=== PATIENT | male | born 1925 | race Caucasian/White ===

== ENCOUNTER 2016-04-08 10:36 | Observation (INO) | payer MEDICARE, OTHER ==
[2016-04-08 11:15] LABS: HEMATOCRIT 31.3 % (37.9-51.0); HEMOGLOBIN 10.9 g/dL (13.5-17.0); HGB HCT DIFFERENCE 1.4; MEAN CORPUSCULAR HEMOGLOBIN 33.5 pg (27.0-33.4); MEAN CORPUSCULAR HGB CONC 34.6 g/dL (32.0-36.0); MEAN CORPUSCULAR VOLUME 97 fl (80-97); RED BLOOD COUNT 3.24 10^6/uL (4.35-5.55); RED CELL DISTRIBUTION WIDTH 13.5 % (11.5-14.0); WHITE BLOOD COUNT 15.1 10^3/uL (4.0-10.5)
[2016-04-08 11:26] LABS: ALANINE AMINOTRANSFERASE 14 U/L (21-72); ALBUMIN 3.3 g/dL (3.5-5.0); ALKALINE PHOSPHATASE 68 U/L (38-126); ANION GAP 12 (5-19); ASPARTATE AMINO TRANSFERASE 33 U/L (17-59); BILIRUBIN,TOTAL 0.8 mg/dL (0.2-1.3); BLOOD UREA NITROGEN 23 mg/dL (7-20); CALCIUM 9.4 mg/dL (8.4-10.2); CARBON DIOXIDE 21 mmol/L (22-30); CHLORIDE 104 mmol/L (98-107); CREATINE KINASE 30 U/L (55-170); CREATININE RESULT 0.91 mg/dL (0.52-1.25); GLUCOSE 104 mg/dL (75-110); POTASSIUM 3.5 mmol/L (3.6-5.0); SODIUM 137.3 mmol/L (137-145); TOTAL PROTEIN 7.5 g/dL (6.3-8.2)
[2016-04-08 11:38] LABS: BASOPHILS % (MANUAL) 0 % (0-2); EOSINOPHILS % (MANUAL) 0 % (0-6); LYMPHOCYTES % (MANUAL) 3 % (13-45); TOTAL CELLS COUNTED 100
[2016-04-08 11:39] LABS: CREATINE KINASE MB 0.96 ng/mL (<4.55); TROPONIN I < 0.012 ng/mL
[2016-04-08 11:40] LABS: RBC MORPHOLOGY COMMENT NORMO-CYTIC/CHROMIC; TOXIC GRANULATION SLIGHT; TOXIC VACUOLATION PRESENT
[2016-04-08 11:57] LABS: APPEARANCE,URINE CLOUDY; BILIRUBIN,URINE NEGATIVE (NEGATIVE); GLUCOSE, URINE NEGATIVE (NEGATIVE); KETONES,URINE NEGATIVE (NEGATIVE); LEUKOCYTE ESTERASE,URINE MODERATE (NEGATIVE); NITRITE,URINE NEGATIVE (NEGATIVE); PROTEIN,URINE 30 mg/dL (NEGATIVE); TRIPLE PHOSPHATE CRYSTAL,URINE MODERATE /HPF; URINE SPECIFIC GRAVITY 1.013; UROBILINOGEN,URINE NEGATIVE mg/dL (<2.0)
--- NOTE | 2016-04-08 13:03 | ER Document Report ---
[id number] OF BREATH Mode of Arrival: Medic Information source: Patient, Dr. Office Notes: 89-year-old male sent in by his primary care physician for fast heart rate. Patient's physician Dr. Simons contacted me noted that the patient's heart rate was in the 170s SVT, patient himself notes his heart was racing and that he was short of breath with the jaw pain TRAVEL OUTSIDE OF THE [place] IN LAST 30 DAYS: No - HPI Onset: Just prior to arrival Onset/Duration: Sudden Quality of pain: Achy Severity: Mild Pain Level: 1 Associated symptoms: Chest pain Exacerbated by: Denies Relieved by: Denies Similar symptoms previously: No Recently seen / treated by doctor: Yes - Related Data Allergies/Adverse Reactions: acetaminophen [From Percocet] Allergy (Verified 04/08/16 11:20) oxycodone [From Percocet] Allergy (Verified 04/08/16 11:20) Past Medical History - Social History Smoking Status: Never Smoker Cigarette use (# per day): No Chew tobacco use (# tins/day): No Smoking Education Provided: No Family History: Reviewed & Not Pertinent - Past Medical History Cardiac Medical History: Denies: Hx Coronary Artery Disease, Hx Heart Attack, Hx Hypertension Pulmonary Medical History: Reports: Hx Bronchitis Denies: Hx Asthma, Hx COPD, Hx Pneumonia Neurological Medical History: Denies: Hx Cerebrovascular Accident, Hx Seizures Musculoskeltal Medical History: Reports Hx Arthritis Past Surgical History: Reports: Hx Abdominal Surgery - hernia repair, Hx Cholecystectomy, Hx Kidney (Renal Surgery) - Urostomy. Denies: Hx Pacemaker - Immunizations Hx Diphtheria, Pertussis, Tetanus Vaccination: No - Unsure Hx Pneumococcal Vaccination: 11/22/10 Review of Systems - Review of Systems Notes: REVIEW OF SYSTEMS: CONSTITUTIONAL : Denies fever, chills, or sweats. Denies recent illness. EENT: Denies eye, ear, throat, or mouth pain or symptoms. Denies nasal or sinus congestion or discharge. Denies throat, tongue, or mouth swelling or difficulty swallowing. CARDIOVASCULAR: admits ot racing heart RESPIRATORY: Denies cough, cold, or chest congestion. Denies shortness of breath, difficulty breathing, or wheezing. GASTROINTESTINAL: Denies abdominal pain or distention. Denies nausea, vomiting , or diarrhea. Denies blood in vomitus, stools, or per rectum. Denies black, tarry stools. Denies constipation. GENITOURINARY: Denies difficulty urinating, painful urination, burning, frequency, blood in urine, or discharge. MUSCULOSKELETAL: Denies back or neck pain or stiffness. Denies joint pain or swelling. SKIN: Denies rash, lesions or sores. HEMATOLOGIC : Denies easy bruising or bleeding. LYMPHATIC: Denies swollen, enlarged glands. NEUROLOGICAL: Denies confusion or altered mental status. Denies passing out or loss of consciousness. Denies dizziness or lightheadedness. Denies headache. Denies weakness or paralysis or loss of use of either side. Denies problems with gait or speech. Denies sensory loss, numbness, or tingling. Denies seizures. PSYCHIATRIC: Denies anxiety or stress. Denies depression, suicidal ideation, or homicidal ideation. ALL OTHER SYSTEMS REVIEWED AND NEGATIVE. Dictation was performed using [employer] voice recognition software PHYSICAL EXAMINATION: GENERAL: Well-appearing, well-nourished and in no acute distress. HEAD: Atraumatic, normocephalic. EYES: Pupils equal round and reactive to light, extraocular movements intact, sclera anicteric, conjunctiva are normal. ENT: Nares patent, oropharynx clear without exudates. Moist mucous membranes. NECK: Normal range of motion, supple without lymphadenopathy LUNGS: Breath sounds clear to auscultation bilaterally and equal. No wheezes rales or rhonchi. HEART: irregular rate and rythm ABDOMEN: Soft, nontender, nondistended abdomen. No guarding, no rebound. No masses appreciated. Musculoskeletal: Normal range of motion, no pitting or edema. No cyanosis. NEUROLOGICAL: Cranial nerves grossly intact. Normal speech, normal gait. Normal sensory, motor exams PSYCH: Normal mood, normal affect. SKIN: Warm, Dry, normal turgor, no rashes or lesions noted. Physical Exam - Vital signs Vitals: Pulse Ox 98 04/08/16 10:45 Course - Re-evaluation Re-evalutation: 04/08/16 13:03 Patient is adamant that he go home, I think this is a terrible idea, CT is pending however the patient does have irregular heart rate concerning for new onset A. fib 04/08/16 16:07 CT was negative, patient's heart rate continues to go anywhere between 80s to 120s intermittently, I believe further evaluation is appropriate and I will admit the patient for concerns of new onset A. fib - Vital Signs Vital signs: Temp Pulse Resp BP Pulse Ox 15 144/98 H 96 04/08/16 15:06 04/08/16 15:06 04/08/16 15:06 - Laboratory Result Diagrams: 04/08/16 11:05 04/08/16 11:05 Laboratory results interpreted by me: 04/08/16 04/08/16 04/08/16 11:05 11:05 11:34 WBC 15.1 H RBC 3.24 L Hgb 10.9 L Hct 31.3 L MCH 33.5 H Seg Neuts % (Manual) 92 H Lymphocytes % (Manual) 3 L Abs Neuts (Manual) 13.9 H Potassium 3.5 L Carbon Dioxide 21 L BUN 23 H ALT 14 L Creatine Kinase 30 L Albumin 3.3 L Urine Protein 30 H Ur Leukocyte Esterase MODERATE H - Diagnostic Test Radiology reviewed: Image reviewed, Reports reviewed - EKG Interpretation by Me EKG shows normal: Sinus rhythm, Saline, Intervals, QRS Complexes Rate: Tachycardia Discharge - Discharge Clinical Impression: Tachycardia Afib Qualifiers: Atrial fibrillation type: paroxysmal Qualified Code(s): I48.0 - Paroxysmal atrial fibrillation Condition: Stable Disposition: ADMITTED INPATIENT Admitting Provider: Hospitalist Unit Admitted: [facility]
[2016-04-08] MEDS ORDERED: NORMAL SALINE 1000 ML 1,000 ML IV PRN (17:19)
--- NOTE | 2016-04-08 17:28 | PDOC H&P ---
History of Present Illness Admission Date/PCP: 04/08/16 16:16 ISMAEL HERNANDEZ MD History of Present Illness: TORRIE DURAN is a 89 year old male sent in by his primary care physician for fast heart rate. Patient's physician Dr. 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, bones, lungs Cardiac Medical History: Denies: Coronary Artery Disease, Myocardial Infarction, Hypertension Pulmonary Medical History: Reports: Bronchitis Denies: Asthma, Chronic Obstructive Pulmonary Disease (COPD), Pneumonia Neurological Medical History: Denies: Seizures Malignancy Medical History: Reports: Other - stage 4 ca with mets to liver , lungs , bones ca bladder, prostate Musculoskeltal Medical History: Reports: Arthritis Hematology: Denies: Anemia Past Surgical History Past Surgical History: Reports: Cholecystectomy, Other - cystectomy ileal conduit parastomal hernia Denies: Pacemaker Social History Smoking Status: Never Smoker Frequency of Alcohol Use: None Hx Recreational Drug Use: No Family History Parental Family History Reviewed: Yes - mother [place] Children Family History Reviewed: Yes Sibling(s) Family History Reviewed.: Yes - sister [place] ; brother cancer Medication/Allergy Home Medications: Hydrochlorothiazide [Hydrodiuril 12.5 mg Capsule] 12.5 mg PO DAILY 04/08/16 Megestrol Acetate 40 mg PO BID 04/08/16 Prednisone [Deltasone 10 mg Tablet] 10 mg PO BID 04/08/16 Allergies/Adverse Reactions: acetaminophen [From Percocet] Allergy (Verified 04/08/16 11:20) oxycodone [From Percocet] Allergy (Verified 04/08/16 11:20) Review of Systems Constitutional: PRESENT: fatigue. ABSENT: night sweats, weakness, weight gain, weight loss Eyes: ABSENT: visual disturbances Ears: ABSENT: hearing changes Cardiovascular: PRESENT: dyspnea on exertion, orthropnea, palpitations Respiratory: PRESENT: dyspnea. ABSENT: cough, hemoptysis Gastrointestinal: ABSENT: abdominal pain, constipation, diarrhea, hematemesis, hematochezia, nausea, vomiting Musculoskeletal: ABSENT: joint swelling Neurological: ABSENT: abnormal gait, abnormal speech, confusion, dizziness, focal weakness, syncope Physical Exam Vital Signs: Temp Pulse Resp BP Pulse Ox 19 149/100 H 97 04/08/16 16:01 04/08/16 16:01 04/08/16 16:01 General appearance: PRESENT: no acute distress, well-developed, well-nourished Head exam: PRESENT: atraumatic, normocephalic Eye exam: PRESENT: conjunctiva pink, EOMI, PERRLA. ABSENT: scleral icterus Ear exam: PRESENT: normal external ear exam Mouth exam: PRESENT: moist, tongue midline Neck exam: ABSENT: carotid bruit, JVD, lymphadenopathy, thyromegaly Respiratory exam: PRESENT: clear to auscultation renetta. ABSENT: rales, rhonchi, wheezes Cardiovascular exam: PRESENT: RRR, systolic murmur. ABSENT: rubs Pulses: PRESENT: normal dorsalis pedis pul Vascular exam: PRESENT: normal capillary refill GI/Abdominal exam: PRESENT: normal bowel sounds, soft. ABSENT: distended, guarding, mass, organolmegaly, rebound, tenderness Rectal exam: PRESENT: deferred Extremities exam: PRESENT: full ROM. ABSENT: calf tenderness, clubbing, pedal edema Neurological exam: PRESENT: alert, awake, oriented to person, oriented to place , oriented to time, oriented to situation, CN II-XII grossly intact. ABSENT: motor sensory deficit Psychiatric exam: PRESENT: appropriate affect, normal mood. ABSENT: homicidal ideation, suicidal ideation Skin exam: PRESENT: dry, intact, warm. ABSENT: cyanosis, rash Results Laboratory Results: Labs- All tests 24 hr 04/08/16 04/08/16 04/08/16 11:05 11:05 11:05 WBC 15.1 H RBC 3.24 L Hgb 10.9 L Hct 31.3 L MCV 97 MCH 33.5 H MCHC 34.6 RDW 13.5 Plt Count 356 Total Counted 100 Seg Neutrophils % Not Reportable Seg Neuts % (Manual) 92 H Lymphocytes % Not Reportable Lymphocytes % (Manual) 3 L Monocytes % Not Reportable Monocytes % (Manual) 5 Eosinophils % Not Reportable Eosinophils % (Manual) 0 Basophils % Not Reportable Basophils % (Manual) 0 Absolute Neutrophils Not Reportable Abs Neuts (Manual) 13.9 H Absolute Lymphocytes Not Reportable Abs Lymphs (Manual) 0.5 Absolute Monocytes Not Reportable Abs Monocytes (Manual) 0.8 Absolute Eosinophils Not Reportable Absolute Eos (Manual) 0.0 Absolute Basophils Not Reportable Abs Basophils (Manual) 0.0 Toxic Granulation SLIGHT Toxic Vacuolation PRESENT Platelet Comment ADEQUATE RBC Morph Comment NORMO-CYTIC/CHROMIC Sodium 137.3 Potassium 3.5 L Chloride 104 Carbon Dioxide 21 L Anion Gap 12 BUN 23 H Creatinine 0.91 Est GFR ( Amer) > 60 Est GFR (Non-Af Amer) > 60 Glucose 104 Calcium 9.4 Magnesium Total Bilirubin 0.8 Direct Bilirubin 0.0 AST 33 ALT 14 L Alkaline Phosphatase 68 Creatine Kinase 30 L CK-MB (CK-2) 0.96 Troponin I < 0.012 Total Protein 7.5 Albumin 3.3 L TSH Urine Color Urine Appearance Urine pH Ur Specific [place] Urine Protein Urine Glucose (UA) Urine Ketones Urine Blood Urine Nitrite Urine Bilirubin Urine Urobilinogen Ur Leukocyte Esterase Urine WBC (Auto) Urine RBC (Auto) Urine Bacteria (Auto) Squamous Epi Cells Auto U Non-Squamous Epis Auto Triple Phos Cryst (Auto) Urine Mucus (Auto) Urine Ascorbic Acid 04/08/16 04/08/16 04/08/16 11:05 11:05 11:34 WBC RBC Hgb Hct MCV MCH MCHC RDW Plt Count Total Counted Seg Neutrophils % Seg Neuts % (Manual) Lymphocytes % Lymphocytes % (Manual) Monocytes % Monocytes % (Manual) Eosinophils % Eosinophils % (Manual) Basophils % Basophils % (Manual) Absolute Neutrophils Abs Neuts (Manual) Absolute Lymphocytes Abs Lymphs (Manual) Absolute Monocytes Abs Monocytes (Manual) Absolute Eosinophils Absolute Eos (Manual) Absolute Basophils Abs Basophils (Manual) Toxic Granulation Toxic Vacuolation Platelet Comment RBC Morph Comment Sodium Potassium Chloride Carbon Dioxide Anion Gap BUN Creatinine Est GFR ( Amer) Est GFR (Non-Af Amer) Glucose Calcium Magnesium 2.0 Total Bilirubin Direct Bilirubin AST ALT Alkaline Phosphatase Creatine Kinase CK-MB (CK-2) Troponin I Total Protein Albumin TSH 1.24 Urine Color YELLOW Urine Appearance CLOUDY Urine pH 8.0 Ur Specific [place] 1.013 Urine Protein 30 H Urine Glucose (UA) NEGATIVE Urine Ketones NEGATIVE Urine Blood NEGATIVE Urine Nitrite NEGATIVE Urine Bilirubin NEGATIVE Urine Urobilinogen NEGATIVE Ur Leukocyte Esterase MODERATE H Urine WBC (Auto) 12 Urine RBC (Auto) 1 Urine Bacteria (Auto) 3+ Squamous Epi Cells Auto <1 U Non-Squamous Epis Auto 1 Triple Phos Cryst (Auto) MODERATE Urine Mucus (Auto) RARE Urine Ascorbic Acid NEGATIVE Impressions: Chest X-Ray 04/08/16 10:40 IMPRESSION: No acute changes. Other findings as noted above Chest/Abdomen CTA 04/08/16 12:54 IMPRESSION: NO PULMONARY EMBOLI. Assessment & Plan - Diagnosis (1) Tachycardia Is this a current diagnosis for this admission?: YesPlan: will monitor patient most likely has PAF now in NSR with multiple pac's will initiate cardizem CD 120 mg and order PRN doses of cardizem IV if HR>100 cardiac wup in progress : echo cardiogram , serial troponins, EKG in am Thyroid function tests pending (2) Bacteriuria Is this a current diagnosis for this admission?: YesPlan: will obtain urine culture likely chronic colonisation (3) Metastatic cancer Is this a current diagnosis for this admission?: Yes - Time Time Spent with patient: patient admitted to telemetry for observation Time Spent: 50 to 70 Minutes - Inpatient Certification Based on my medical assessment, after consideration of the patient's comorbidities, presenting symptoms, or acuity I expect that the services needed warrant INPATIENT care.: No I certify that my determination is in accordance with my understanding of Medicare's requirements for reasonable and necessary INPATIENT services [42 CFR 412.3e].: Yes
[2016-04-08] MEDS ORDERED: DILTIAZEM HCL INJ 25 MG/5 ML VIAL IV PRN (17:45)
[2016-04-08] MEDS ORDERED: DILTIAZEM HCL 120 MG CAP.SR.24H PO SCH (18:00)
[2016-04-08] MEDS ORDERED: ENOXAPARIN SODIUM INJ 40 MG/0.4 ML DISP.SYRIN SUBCUT ONE (19:00)
[2016-04-08 19:55] LABS: THYROID STIMULATING HORMONE 1.34 uIU/mL (0.47-4.68)
--- NOTE | 2016-04-08 21:35 | EKG REPORT ---
SEVERITY:- ABNORMAL ECG - SINUS RHYTHM MULTIPLE ATRIAL PREMATURE COMPLEXES BORDERLINE LEFT AXIS DEVIATION : Confirmed by: Pedro Lopez 08-Apr-2016 21:34:42
[2016-04-09 06:53] LABS: ALANINE AMINOTRANSFERASE 18 U/L (21-72); ALBUMIN 2.7 g/dL (3.5-5.0); ALKALINE PHOSPHATASE 56 U/L (38-126); ANION GAP 9 (5-19); ASPARTATE AMINO TRANSFERASE 12 U/L (17-59); BILIRUBIN,TOTAL 0.7 mg/dL (0.2-1.3); BLOOD UREA NITROGEN 18 mg/dL (7-20); CALCIUM 8.4 mg/dL (8.4-10.2); CARBON DIOXIDE 23 mmol/L (22-30); CHLORIDE 107 mmol/L (98-107); CREATININE RESULT 0.99 mg/dL (0.52-1.25); GLUCOSE 97 mg/dL (75-110); MAGNESIUM 1.8 mg/dL (1.6-2.3); POTASSIUM 3.2 mmol/L (3.6-5.0); SODIUM 139.4 mmol/L (137-145); TOTAL PROTEIN 6.3 g/dL (6.3-8.2)
[2016-04-09] MEDS ORDERED: ENOXAPARIN SODIUM INJ 40 MG/0.4 ML DISP.SYRIN SUBCUT SCH (08:00)
[2016-04-09] MEDS ORDERED: (PENDING PHARMACY ID) (Megestrol Acetate [Megestrol Acetate] 40 MG) PO SCH (10:00)
[2016-04-09] MEDS ORDERED: ENZALUTAMIDE 160 MG PO SCH (10:00)
[2016-04-09] MEDS ORDERED: POTASSIUM CHLORIDE 10 MEQ TABLET.SA PO ONE (10:00)
[2016-04-09] MEDS ORDERED: (PENDING PHARMACY ID) (Enzalutamide [Xtandi] 160 MG) PO SCH (10:00)
[2016-04-09] MEDS ORDERED: MEGESTROL ACETATE 20 MG TABLET PO SCH (10:00)
[2016-04-09] MEDS ORDERED: PREDNISONE 10 MG TABLET PO SCH (10:00)
[2016-04-09] MEDS ORDERED: DILTIAZEM HCL 120 MG CAP.SR.24H PO ONE (14:00)
[2016-04-09 14:54] VITALS: BP 128/81
[2016-04-09] MEDS ORDERED: CEFTRIAXONE 1 GM/D5W RTU 1 GM/50 ML RTUPB IV ONE (15:00)
[2016-04-09] MEDS ORDERED: CEFPODOXIME 200 MG TABLET PO ONE (16:00)
--- NOTE | 2016-04-09 16:48 | CONSULTATION REPORT E ---
Consultation Report NAME: TORRIE DURAN : 1925 AGE: 89Y DATE: 04/09/2016 321 B TO: ALEJANDRA SINGH M.D. FROM: Requesting Physician REASON FOR CONSULTATION: PSVT which converted to sinus rhythm with multiple APCs. HISTORY OF PRESENT ILLNESS: The patient is an 89-year-old male who states that since the past 2-3 weeks he has not been feeling well with dyspnea on mild exertion, especially if he walks a flight of stairs. Hence, the patient went to see his PMD yesterday and his EKG showed that the patient was in PSVT. The patient wanted to drive to the hospital but his PMD convinced him to go the ER by EMT. In the ER, the patient was seen to be in sinus rhythm with frequent APCs. The patient states he did not feel any palpitations the last 3 weeks or so with dyspnea on exertion. But when his PMD got an EKG and pointed out that the patient's heart rate was fast, then he felt palpitations. He also had jaw pain and also shortness of breath. The patient denies any PND, orthopnea, or leg edema. There is no syncopal episode. There are no TIA or CVA symptoms. PAST MEDICAL HISTORY: Negative for diabetes mellitus, negative for hypertension, negative for coronary artery disease or MS. There is no history of thyroid disorder. The patient has no chronic kidney disease. The patient has prostate cancer and also had a prostatectomy and also had bladder cancer which the states there is mets to the bones but not to the liver or lungs. He also has a history of arthritis. The patient denies asthma, COPD, or pneumonia but the patient has mild pulmonary fibrosis by his CTA. He denies any history of TIA or CVA. There is no syncope. There is no sleep apnea. There is no pulmonary embolism. There is no DVT. PAST SURGICAL HISTORY: Positive for cholecystectomy. He also had a cystectomy and a ileal conduit and parastomal hernia. He also has had prostatectomy. SOCIAL HISTORY: Note that the patient is a DNR. His is his surrogate healthcare decision maker. The patient quit smoking a long time ago. He does not smoke anymore. FAMILY HISTORY: He states his mother of MS. Also, his sister of MS. Brother of cancer. ALLERGIES: 1. ACETAMINOPHEN. 2. OXYCODONE. MEDICATIONS: 1. Diltiazem 10 mg IV q.6 hours p.r.n. 2. He is also on diltiazem sustained release 120 mg p.o. q.12 hours. 3. He is on Lovenox 40 mg subcutaneous q. a.m. 4. Normal saline 1000 mL continuous at 75 mL per hour. 5. He is on megestrol 40 mg p.o. b.i.d. 6. He is on KCl 40 mEq p.o. times 1. 7. He is on Deltasone 10 mg p.o. b.i.d. 8. He is ceftriaxone 1 g IV piggyback times 1. REVIEW OF SYSTEMS: CONSTITUTIONAL: Denies any fever, chills, or rigors. Complains of generalized fatigue. There are no night sweats. EYES: There is no visual disturbance. There is no amaurosis fugax. EARS: The patient is hard of hearing. HEAD: No history of head injury or headaches or migraines. NOSE: No history of hay fever. No history of nosebleeds. MOUTH: No history of altered taste sensation. No ulcers in the mouth. THROAT: No odynophagia or dysphagia. SKIN: No skin rashes or petechia or ecchymosis. No psoriasis. No pruritus. No yellowish discoloration of the skin. NECK: No swelling in the neck, painful or painless. There is no lymphadenopathy. There is no goiter. Trachea is central. LUNGS: The patient denies any cough or sputum production. There is no wheezing. There is no orthopnea. There is no history of sleep apnea. There is no asthma or COPD, but the patient's CTA shows mild pulmonary fibrosis, most likely the cause of the patient having sinus rhythm with APCs versus aortic atrial mechanism. CARDIAC: Denies hypertension, coronary artery disease, MS, or anginal symptoms although the patient did have jaw pain and his heart rate was fast when he was in PSVT. The patient, in the past, has not felt palpitations although he has been having dyspnea on exertion. There is no leg edema. There is no PND or orthopnea. There is no syncope. GASTROINTESTINAL: History of diminished appetite. The patient is on megestrol for that. History of cholecystectomy. At present, no fatty food intolerance. No jaundice. No hepatitis. There is no hematemesis or melena. MUSCULOSKELETAL: The patient has a history of arthritis but there is no acute joint swelling or redness of the joints. RENAL: No history of renal disease. No history of chronic kidney disease. History of cystectomy/bladder surgery for bladder cancer. History of ileal conduit and history of parastomal hernia. History of prostatectomy present. He had radiation therapy also. No symptoms of UTI although the patient's urine shows moderate urine leukocyte esterase and 12 WBCs. The patient's urine culture is positive for gram negative rods. MUSCULOSKELETAL: History of arthritis present but no acute joints, swelling, or redness. No collagen vascular disease. CENTRAL NERVOUS SYSTEM: There is no history of TIA or CVA. No history of seizures, headaches, or migraines. PSYCHIATRIC: No history of anxiety or depression. No history of suicidal ideation. PHYSICAL EXAMINATION: GENERAL: The patient is well built and well nourished in no acute distress. VITAL SIGNS: He is afebrile with a temperature of 98.2 degrees Fahrenheit, pulse is 85 beats per minute, blood pressure 126/54, respirations are 19 per minute, 02 saturations are 94% on room air. HEENT: Head is atraumatic, normocephalic. Eyes: Pupils are equal, round, regular and reactive to light and accommodation. Extraocular movements are normal. There is no conjunctival pallor. There is no scleral icterus. Ears: Tympanic membranes are intact. External auditory canal is clear. Nose: There is no deviated nasal septum. There is no inflammation of the nasal mucous membranes. Mouth: Mucous membranes of the mouth are moist. Tongue is moist. There are no ulcers. There is no bleeding from the gums. Throat: There is no redness of the oropharynx. There are no exudates on the tonsils. SKIN: There is no petechia or ecchymosis. There are no skin lesions. There are no skin rashes. NECK: Supple. There is no JVD. Carotids are equal. There is no bruit. There is no lymphadenopathy. There is no goiter. Trachea is central. LUNGS: Show a few dry crackles of leathery in nature bilaterally in the bases. HEART: S1 and S2 are heard. There is probably mild aortic stenosis present with preserved A2. There is no S3 gallop. There is no S4 gallop. There is a systolic murmur in the apex with mild radiation to the axilla suggestive of mild mitral regurgitation. There is no rub. There are no gallops. ABDOMEN: Soft. There is no hepatosplenomegaly. Bowel sounds are well heard. There is an ileal conduit with a bag present in the lower abdomen. EXTREMITIES: Femorals are diminished. Leg pulses are diminished. There are no femoral bruits. There is no cyanosis or clubbing. There is no DVT or cellulitis. There is no calf tenderness. There is no pedal edema. CENTRAL NERVOUS SYSTEM: The patient is conscious, awake, alert, oriented x3 with no focal deficits. PSYCHIATRIC: The patient's judgment and insight are intact. His affect is normal. The patient does not appear to be agitated. DIAGNOSTICS: The patient's chest x-ray: Scattered sclerotic densities are in effect consistent with bony metastatic disease which is present on a previous CT scan. No opacities, masses, or pneumothorax. No pleural effusion. Cardial silhouette is within normal limits. Tortuous calcified thoracic aorta is identified. The patient's initial EKG done in the doctor's office only shows PSVT at a rate of 170 beats per minute. Subsequent EKG is sinus rhythm with multiple atrial premature complexes versus aortic atrial mechanism. Borderline left axis deviation. The patient's chest/abdomen CTA shows no evidence of pulmonary emboli. There is mild pulmonary fibrosis. There are no acute infiltrates. No worrisome pulmonary nodules. Minimal peripheral increase interstitial markings for a mild pulmonary fibrosis. There is no pleural effusion. There is no pneumothorax. The patient's EKG strip shows aortic atrial mechanism with 3 different *------* morphologies. The patient's sodium is 139, potassium 3.2. This has been reversed. The patient's chloride is 107, CO2 is 23. The patient's BUN is 18, creatinine is 0.99, GFR is greater than 60. His glucose is 97. His magnesium is 1.8. His calcium is 8.4. His liver function tests are normal except for a low AST of 12 and low ALT of 18. Alk phos is normal at 56. His cardiac enzymes: Troponin I is negative x3. His total protein is 6.3, albumin is 2.7. The patient's TSH is 1.34. Free T4 is 1.30. The patient's white count is 15,100; hemoglobin is 10.9; hematocrit of 31.3; platelet count of 356,000. IMPRESSION: 1. Paroxysmal supraventricular tachycardia resolved. 2. Sinus rhythm with frequent APCs versus aortic atrial mechanism. 3. Stage IV cancer with mets to the bones from prostate cancer and also bladder cancer. 4. Arthritis. 5. Note that the patient's last diagnosis was hypokalemia. Potassium has been replaced. 6. Urinary tract infection with gram negative rods in the urine. Patient being treated with antibiotics. RECOMMENDATIONS: Continue Cardizem CD at 120 mg p.o. q.12 hours and he is on Xtandi 160 mg p.o. daily. Megestrol 40 mg p.o. b.i.d. He is on Deltasone 10 mg p.o. b.i.d. He is on Vantin 200 mg 1 tablet p.o. q.12 hours. Note that the patient is anxious to go home. We will get the patient's echo in the office. We will also get a 30-day event monitor. Note, 40 minutes spent on this patient, with more than 50% of the time spent on direct patient care and also discussions of the EKG findings and the lab results with patient and the patient's . Also, coordination of care was done with the hospitalist taking care of the patient and other caregiving providers. Also, medications were reviewed and adjusted. We will sign off the case and follow the patient as an outpatient since the patient and the patient's want to followup with me. I have given them my cell number to call me. Thanking you. DICTATING PHYSICIAN: ALEJANRDA SINGH M.D. [id number] PHY#: [id number] ID: [id number] JOB#: [id number] ACCT: [id number] cc:ALEJANDRA SINGH M.D. >
--- NOTE | 2016-04-09 17:09 | PDOC DISCHARGE SUMMARY ---
General - Admit/Disc Date/PCP Admission Date/Primary Care Provider: 04/08/16 17:19 ISMAEL HERNANDEZ MD Discharge Date: 04/09/16 - Discharge Diagnosis (1) Tachycardia Is this a current diagnosis for this admission?: YesSummary: Patient was admitted after he was found to have a heart rate 150-170 irregular at his doctor's office Upon admission in the ER patient was found to have sinus tachycardia with multiple PACs He was admitted overnight for observation and cardiac monitoring He remained in sinus tachycardia with PACs and was not noted to be in atrial fibrillation Patient was treated with Cardizem po He will be discharged with Cardizem CD 120 mg every 12, and will be followed by Dr. Calixto as an outpatient An echocardiogram was performed prior to his discharge TSH and T4 were normal 04/08/16 04/09/16 04/09/16 18:47 00:46 06:30 Troponin I < 0.012 < 0.012 < 0.012 3 troponins were less than 0.012 (2) Bacteriuria Is this a current diagnosis for this admission?: YesSummary: Urine culture showed to gram-negative bacteria Identification and sensitivity are pending Noted that patient had a white blood count of 15,000 Patient was discharged on vantin 200 mg twice a day pending results Urinary tract infection may have triggered the tachycardia (3) Metastatic cancer Is this a current diagnosis for this admission?: Yes - Additional Information Resuscitation Status: Do Not Resuscitate Discharge Diet: Cardiac Discharge Activity: Activity As Tolerated Home Medications: Enzalutamide [Xtandi] 160 mg PO DAILY 04/08/16 Megestrol Acetate 40 mg PO BID 04/08/16 Prednisone [Deltasone 10 mg Tablet] 10 mg PO BID 04/08/16 Cefpodoxime Proxetil [Vantin 200 mg Tablet] 1 tab PO Q12 #20 tab 04/09/16 Diltiazem HCl [Cardizem Cd 120 mg Capsule] 1 cap.sr PO Q12 #60 cap.sr 04/09/16 History of Present Illness Patient complains of: Tachycardia at the doctor's office and shortness of breath History of Present Illness: TORRIE DURAN is a 89 year old male sent in by his primary care physician for fast heart rate. Patient's physician Dr. Hernandez contacted me noted that the patient's heart rate was in the 170s SVT , patient himself notes his heart was racing and that he was short of breath with the jaw pain Patient was evaluated in ED Upon evaluation he was found to be in NSR with multiple apc's ; He was subsequently admitted to [facility] under hospitalist's service Hospital Course Hospital Course: See above Physical Exam Vital Signs: Temp Pulse Resp BP Pulse Ox 98.4 F 93 19 128/81 H 95 04/09/16 14:53 04/09/16 14:53 04/09/16 14:53 04/09/16 14:53 04/09/16 14:53 Intake & Output 04/08/16 04/09/16 04/10/16 00:59 00:59 00:59 Intake Total 300 1192 Output Total 450 525 Balance -150 667 Weight 70.1 kg 70.4 kg General appearance: PRESENT: no acute distress, well-developed, well-nourished Head exam: PRESENT: atraumatic, normocephalic Eye exam: PRESENT: conjunctiva pink, EOMI, PERRLA. ABSENT: scleral icterus Ear exam: PRESENT: normal external ear exam Mouth exam: PRESENT: moist, tongue midline Neck exam: ABSENT: carotid bruit, JVD, lymphadenopathy, thyromegaly Respiratory exam: PRESENT: clear to auscultation renetat. ABSENT: rales, rhonchi, wheezes Cardiovascular exam: PRESENT: RRR. ABSENT: diastolic murmur, rubs, systolic murmur Pulses: PRESENT: normal dorsalis pedis pul Vascular exam: PRESENT: normal capillary refill GI/Abdominal exam: PRESENT: normal bowel sounds, soft. ABSENT: distended, guarding, mass, organolmegaly, rebound, tenderness Rectal exam: PRESENT: deferred Extremities exam: PRESENT: full ROM. ABSENT: calf tenderness, clubbing, pedal edema Neurological exam: PRESENT: alert, awake, oriented to person, oriented to place , oriented to time, oriented to situation, CN II-XII grossly intact. ABSENT: motor sensory deficit Psychiatric exam: PRESENT: appropriate affect, normal mood. ABSENT: homicidal ideation, suicidal ideation Skin exam: PRESENT: dry, intact, warm. ABSENT: cyanosis, rash Results Laboratory Results: 04/09/16 06:30 04/08/16 04/09/16 18:47 06:30 Sodium 139.4 Potassium 3.2 L Chloride 107 Carbon Dioxide 23 Anion Gap 9 BUN 18 Creatinine 0.99 Est GFR ( Amer) > 60 Est GFR (Non-Af Amer) > 60 Glucose 97 Calcium 8.4 Magnesium 1.8 Total Bilirubin 0.7 AST 12 L ALT 18 L Alkaline Phosphatase 56 Total Protein 6.3 Albumin 2.7 L TSH 1.34 Free T4 1.30 04/08/16 04/09/16 04/09/16 18:47 00:46 06:30 Troponin I < 0.012 < 0.012 < 0.012 04/08/16 11:34 Urine Appearance CLOUDY Ur Leukocyte Esterase MODERATE H Urine WBC (Auto) 12 Urine Bacteria (Auto) 3+ 04/08/16 11:34 Urine Culture - Preliminary Urostomy Bag Gram Negative Rods Gram Negative Rods#2 Impressions: Chest X-Ray 04/08/16 10:40 IMPRESSION: No acute changes. Other findings as noted above Chest/Abdomen CTA 04/08/16 12:54 IMPRESSION: NO PULMONARY EMBOLI. Plan Discharge Plan: Patient was discharged home to follow up with primary care physician and Dr. Calixto cardiology Echocardiogram was performed results were not available at time of discharge Time Spent: Less than 30 Minutes
--- NOTE | 2016-04-09 18:09 | XCELERA REPORT ---
[address] [address] Transthoracic Echocardiogram Report Name: TORRIE DURAN Age: 89 yrs Gender: Male : 1925 Patient Status: Inpatient Patient Location: [id number]\S\321\[id number]\B Study Date: 04/09/2016 02:23 PM Height: 67 in Weight: 155 lb BSA: 1.8 m2 Procedure: A two-dimensional transthoracic echocardiogram with color flow and Doppler was performed. The study was technically difficult with many images being suboptimal in quality. Reason For Study: TACHYCARDIA History: TACHYCARDIA. Ordering Physician: SAUL COX Performed By: Sena Lainez Interpretation Summary The left ventricle is normal in size. There is normal left ventricular wall thickness. LV EF is 60% Left ventricular systolic function is normal. The right ventricle is grossly normal size. The right ventricle is not well visualized secondary to technical limitations Calcified mitral apparatus causing mitral stenosis. There is severe mitral annular calcification. There is no evidence of mitral valve prolapse. There is mild mitral stenosis There is a trace amount of mitral regurgitation There is mild to moderate aortic stenosis There is a peak gradient of 46 mm of Hg. There is no LVOT obstruction. There is a mild amount of aortic regurgitation There is no tricuspid stenosis. There is a trace to mild amount of tricuspid regurgitation There is mild pulmonary hypertension by echo RVSP is 36 mm of Hg , with RA mean of 5. There is a mild amount of pulmonic regurgitation There is no pericardial effusion. MMode/2D Measurements \T\ Calculations RVDd: 3.2 cm LVIDd: 3.9 cm FS: 27.5 % Ao root diam: 3.0 cm IVSd: 1.1 cm LVIDs: 2.8 cm EDV(Teich): 65.9 ml LVPWd: 1.1 cm ESV(Teich): 30.3 ml Ao root area: 7.3 cm2 EF(Teich): 54.0 % LA dimension: 3.5 cm LVOT diam: 2.1 cm LVOT area: 3.6 cm2 Doppler Measurements \T\ Calculations MV E max krupa: MV V2 max: MV P1/2t max krupa: Ao V2 max: 152.9 cm/sec 177.2 cm/sec 150.6 cm/sec 338.8 cm/sec MV A max krupa: MV max PG: MV P1/2t: 90.6 msec Ao max P.5 cm/sec 12.6 mmHg MVA(P1/2t): 2.4 cm2 45.9 mmHg MV E/A: 0.82 MV V2 mean: MV dec slope: Ao V2 mean: 114.5 cm/sec 487.0 cm/sec2 232.0 cm/sec MV mean PG: MV dec time: Ao mean P.1 mmHg 0.28 sec 25.3 mmHg MV V2 VTI: Ao V2 VTI: 73.6 cm 39.1 cm CHITRA(I,D): 1.1 cm2 MVA(VTI): 2.0 cm2 CHITRA(V,D): 0.95 cm2 LV V1 max PG: SV(LVOT): 78.7 ml PA V2 max: PI end-d krupa: 3.2 mmHg 110.2 cm/sec 130.3 cm/sec LV V1 mean PG: PA max P.9 mmHg 1.7 mmHg LV V1 max: 89.8 cm/sec LV V1 mean: 58.8 cm/sec LV V1 VTI: 22.0 cm TR max krupa: 278.9 cm/sec TR max P.1 mmHg Left Ventricle The left ventricle is normal in size. There is normal left ventricular wall thickness. LV EF is 60%. Left ventricular systolic function is normal. Doppler measurements suggest impaired left ventricular relaxation, which is associated with grade I/IV or mild diastolic dysfunction. Right Ventricle The right ventricle is grossly normal size. The right ventricle is not well visualized secondary to technical limitations. Atria The right atrium is normal. The left atrial size is normal. Mitral Valve Calcified mitral apparatus causing mitral stenosis. There is severe mitral annular calcification. There is no evidence of mitral valve prolapse. There is no vegetation seen on the mitral valve. There is mild mitral stenosis. There is a trace amount of mitral regurgitation. Aortic Valve There is mild to moderate aortic stenosis. There is a peak gradient of 46 mm of Hg. There is no LVOT obstruction. There is a mild amount of aortic regurgitation. Tricuspid Valve There is no tricuspid stenosis. There is a trace to mild amount of tricuspid regurgitation. There is mild pulmonary hypertension by echo. RVSP is 36 mm of Hg , with RA mean of 5. Pulmonic Valve There is no pulmonic valvular stenosis. There is a mild amount of pulmonic regurgitation. Great Vessels The aortic root is normal size. Effusions There is no pericardial effusion. : SAUL COX > Luisa Odonnell
[2016-04-09] MEDS ORDERED: DILTIAZEM HCL 120 MG CAP.SR.24H PO SCH (22:00)
== END 2016-04-09 17:08 | disposition home or self-care (01) ==
LOC: ER 10:36 → UNDOADMIN 16:16 → EH 16:16 → INTOOBSV 17:19 → EH 17:19 → 3W 18:16 → EH 18:16
PROVIDERS: ADMIT Emergency Medicine; ATTEND Emergency Medicine
DX: I49.1 Atrial premature depolarization (principal); I48.0 Paroxysmal atrial fibrillation; R82.71 Bacteriuria; C61 Malignant neoplasm of prostate; C79.51 Secondary malignant neoplasm of bone; C79.11 Secondary malignant neoplasm of bladder; C78.7 Secondary malignant neoplasm of liver and intrahepatic bile duct; C78.00 Secondary malignant neoplasm of unspecified lung; M19.90 Unspecified osteoarthritis, unspecified site; N39.0 Urinary tract infection, site not specified; E87.6 Hypokalemia; I47.1 Supraventricular tachycardia; Z66 Do not resuscitate
CPT/HCPCS: 93005; 99285; 36415 ×2; 87086; 84439; 82553; 82550; 83735 ×2; 84443; 85025; 87088; 80053 ×2; 81001; 84484 ×2; 87186; 93306; 71010; 71275; 93010; G0378 ×3; A9270 ×6; J1650 ×2; J7030; J0696; J7512